=== PATIENT | male | born 1965 | race Native Hawaiian/Other Pacific Islander ===

== ENCOUNTER 2018-01-16 21:04 | Emergency (ER) | payer OTHER ==
[~2018-01-16] VITALS: Ht 170.2 cm; Wt 70.3 kg
[~2018-01-16 21:04] MED LIST: AMLO2.5T PO; BENADRYL 50M50 MG/ML IM; BISA5TAB65 PO; CLON1TAB18 PO; DECUBI-VITE PO; DIVA500T2 PO; GABA300C2 PO; HALO50IN4 IM; HALO5INJ3 IM; HYDR25TA60 PO; LEVETIRACETA500 M1 PO; LIPITOR10 MG PO; PHYSICIANS1000 MCG/M IJ; POTASSIUM CHLO20 ME1 PO; SEROQUEL400 MG PO
[2018-01-16 21:29] VITALS: BP 107/62; TEMP 98.2
[2018-01-16 22:48] LABS: PLATELET COUNT 367 K/uL (142-355)
[2018-01-16 22:52] LABS: POTASSIUM 4.2 mmol/L (3.6-5.2)
[2018-01-17] MEDS ORDERED: GABA300C2 PO ×2 (02:50→02:58)
[2018-01-17] MEDS ORDERED: APTIOM800 MG PO (02:53)
[2018-01-17] MEDS ORDERED: FURO20TA67 PO (02:53)
[2018-01-17] MEDS ORDERED: PANTOPRAZOLE 40MG TA PO (02:54)
[2018-01-17] MEDS ORDERED: ZN METHIONAT50 MG (02:55)
[2018-01-17] MEDS ORDERED: PHEN50CH2 PO (02:56)
[2018-01-17] MEDS ORDERED: LATUDA40 MG PO (02:57)
[2018-01-17] MEDS ORDERED: MAGNESIUM OXID400 M1 PO (02:58)
[2018-01-17] MEDS ORDERED: ASCO500T18 PO (02:59)
[2018-01-17] MEDS ORDERED: CHLO25IN INJ (03:01)
[2018-01-17] MEDS ORDERED: SENNA8.6 MG PO (03:02)
== END 2018-01-17 02:21 | disposition other institution (70) ==
LOC: ED 21:04
PROVIDERS: Internal Medicine
DX: F20.89 Other schizophrenia (principal); F41.8 Other specified anxiety disorders; R00.0 Tachycardia, unspecified; Z04.6 Encounter for general psychiatric examination, requested by authority
CPT/HCPCS: 80053; 85027; 93005; 99284; 99285

== ENCOUNTER 2018-11-19 19:48 | Emergency (ER) | payer OTHER ==
[~2018-11-19] VITALS: Ht 170.2 cm; Wt 57.6 kg
[~2018-11-19 19:48] MED LIST changes: +APTIOM800 MG PO; +ASCO500T18 PO; +CHLO25IN INJ; +CLON0.5T36 PO; +ESCI10TA PO; +FLUO10CA2 PO; +FOLI1TAB26 PO; +FURO20TA67 PO; +LATUDA40 MG PO; +MAGNESIUM OXID400 M1 PO; +OLAN10INJ IM; +OXCARBAZEPIN300 MG PO; +PANTOPRAZOLE 40MG TA PO; +PHEN50CH2 PO; +SENNA8.6 MG PO; +ZIPR80CA PO; +ZN METHIONAT50 MG
[2018-11-19 20:07] LABS: PLATELET COUNT 355 K/uL (142-355)
[2018-11-19 20:14] LABS: POTASSIUM 3.9 mmol/L (3.6-5.2)
[2018-11-19 22:10] VITALS: BP 129/50; TEMP 98.4
[2018-11-19] MEDS ORDERED: PERPHENAZINE4 MG PO (23:28)
[2018-11-19] MEDS ORDERED: BENZ1TAB43 PO (23:30)
[2018-11-19] MEDS ORDERED: FLUPHENAZINE2.5 MG PO (23:31)
[2018-11-19] MEDS ORDERED: MIRTAZAPINE7.5 MG PO (23:33)
[2018-11-19] MEDS ORDERED: TRILEPTAL150 MG PO (23:34)
[2018-11-19] MEDS ORDERED: PROZAC10 MG PO (23:34)
[2018-11-19] MEDS ORDERED: GENERLAC10 GM/15 M PO (23:35)
[2018-11-19] MEDS ORDERED: PHEN50CH2 PO (23:37)
[2018-11-19] MEDS ORDERED: B-121000 MC4 PO (23:38)
[2018-11-19] MEDS ORDERED: RANI150T78 PO (23:38)
[2018-11-19] MEDS ORDERED: FURO20TA67 PO (23:40)
[2018-11-19] MEDS ORDERED: NALTREXONE50 MG PO (23:40)
[2018-11-19] MEDS ORDERED: POTASSIUM CHLO20 ME1 PO (23:41)
[2018-11-19] MEDS ORDERED: CLON0.5T36 PO (23:46)
== END 2018-11-19 22:10 | disposition other institution (70) ==
LOC: ED 19:48
PROVIDERS: Student in an Organized Health Care Education/Training Program
DX: F20.89 Other schizophrenia (principal); R46.89 Other symptoms and signs involving appearance and behavior; R00.0 Tachycardia, unspecified; I45.19 Other right bundle-branch block; Z04.6 Encounter for general psychiatric examination, requested by authority
CPT/HCPCS: 80053; 80183; 80185; 85027; 93005; 96372; 99285; J2060

== ENCOUNTER 2018-12-01 09:00 | Inpatient (IN) | payer OTHER ==
[2018-12-01] VITALS (19 sets, daily range): BP systolic 102–156; BP diastolic 47–87; TEMP 97–98.5; Ht 177.8 cm; Wt 67.4 kg
[~2018-12-01] VITALS: Ht 177.8 cm; Wt 67.4 kg
[~2018-12-01 09:00] MED LIST changes: +B-121000 MC4 PO; +BENZ1TAB43 PO; +FLUPHENAZINE2.5 MG PO; +GENERLAC10 GM/15 M PO; +MIRTAZAPINE7.5 MG PO; +NALTREXONE50 MG PO; +PERPHENAZINE4 MG PO; +PROZAC10 MG PO; +RANI150T78 PO; +TRILEPTAL150 MG PO
[2018-12-01] MEDS ORDERED: PROZAC10 MG PO (19:01)
[2018-12-01] MEDS ORDERED: FLUPHENAZINE2.5 MG PO (19:02)
[2018-12-01] MEDS ORDERED: TRILEPTAL150 MG PO (19:04)
[2018-12-01] MEDS ORDERED: PHEN50CH2 PO (19:05)
[2018-12-02 01:00] VITALS: TEMP 98.4
== END 2018-12-02 01:48 | disposition short-term general hospital (02) | DRG 872 ==
LOC: ICU 09:00
PROVIDERS: ADMIT Family Medicine
DX: A41.89 Other specified sepsis (principal); K55.8 Other vascular disorders of intestine; E87.1 Hypo-osmolality and hyponatremia; E87.2 Acidosis; F20.0 Paranoid schizophrenia; G40.802 Other epilepsy, not intractable, without status epilepticus; I69.354 Hemiplegia and hemiparesis following cerebral infarction affecting left non-dominant side; I48.91 Unspecified atrial fibrillation; R00.0 Tachycardia, unspecified; E87.8 Other disorders of electrolyte and fluid balance, not elsewhere classified; D64.89 Other specified anemias; K21.9 Gastro-esophageal reflux disease without esophagitis; F42.8 Other obsessive-compulsive disorder; I10 Essential (primary) hypertension; F32.89 Other specified depressive episodes; I25.10 Atherosclerotic heart disease of native coronary artery without angina pectoris; I69.891 Dysphagia following other cerebrovascular disease; R13.19 Other dysphagia; K63.89 Other specified diseases of intestine
CPT/HCPCS: 81000; 93005; 94760; J0696; J1165; J1200; J1630; J2060; J3486; J3490; Q9963

== ENCOUNTER 2019-04-08 16:48 | Emergency (ER) | payer OTHER ==
[~2019-04-08] VITALS: Ht 170.2 cm; Wt 64.4 kg
[~2019-04-08 16:48] MED LIST changes: +B-121000 MC5 PO; +CLONIDINE HYDR0.2 MG PO; +DOCU100C10 PO; +FLUOXETINE20 MG PO; +FLUOXETINE40 MG PO; +FLUP10TA3 PO
[2019-04-08 17:10] LABS: PLATELET COUNT 341 K/uL (142-355)
[2019-04-08 17:15] LABS: POTASSIUM 3.7 mmol/L (3.6-5.2)
[2019-04-08 17:45] VITALS: BP 121/75; TEMP 97.8
[2019-04-08] MEDS ORDERED: DIPHENHYDRAM50 MG/ML IM (18:11)
[2019-04-08] MEDS ORDERED: FLUPHENAZINE5 MG PO (18:12)
[2019-04-08] MEDS ORDERED: ZIPR20CA PO (18:13)
[2019-04-08] MEDS ORDERED: ZIPR80CA PO (18:14)
[2019-04-08] MEDS ORDERED: KEPPRA1000 MG PO (18:15)
[2019-04-08] MEDS ORDERED: ZIPR20IN IM (18:15)
[2019-04-08] MEDS ORDERED: CLON0.5T36 PO (18:16)
[2019-04-08] MEDS ORDERED: MEDR10TA4 PO (18:17)
[2019-04-08] MEDS ORDERED: OXCARBAZEPIN150 MG PO (18:19)
[2019-04-08] MEDS ORDERED: FLUOXETINE HYDR40 MG PO (18:20)
== END 2019-04-08 17:45 | disposition other institution (70) ==
LOC: ED 16:48
PROVIDERS: Emergency Medicine
DX: F91.8 Other conduct disorders (principal); E87.1 Hypo-osmolality and hyponatremia; Z00.8 Encounter for other general examination
CPT/HCPCS: 80053; 85027; 93005; 99283; 99285